=== PATIENT | female | born 1940 ===

== ENCOUNTER 2016-09-29 08:48 | Observation (INO) | payer OTHER ==
[2016-09-29 09:02] VITALS: BMI 28.7
[2016-09-29] MEDS ORDERED: Etomidate 20 mg/10ml Inj IV ONE (10:57)
[2016-09-29] MEDS ORDERED: Rocuronium 10 mg/ml (5 ml) ONE (10:57)
[2016-09-29] MEDS ORDERED: Succinylcholine 200 mg/10 ml Inj IV ONE (10:57)
[2016-09-29] MEDS ORDERED: Propofol 10 mg/ml Inj (20 ML) ONE (11:37)
[2016-09-29] MEDS ORDERED: Bupivacaine 0.5% Inj(30mL) ONE (11:57)
[2016-09-29] MEDS ORDERED: Lactated Ringer's 1,000 ML IV ONE ×2 (12:55)
[2016-09-29] MEDS ORDERED: Bupivacaine 0.5% Inj(30mL) IJ ONE (13:24)
[2016-09-29] MEDS ORDERED: Neostigmine Methylsulfate 3mg/3ml Syringe IV ONE (14:15)
[2016-09-29] MEDS ORDERED: Neostigmine Methylsulfate 2 MG/2 ML ML IV ONE (14:38)
[2016-09-29] MEDS ORDERED: Oxycodone/Acetaminophen 5/325 mg Tab PO PRN (14:39)
[2016-09-29] MEDS ORDERED: Lactated Ringer's 1,000 ML IV SCH (15:01)
[2016-09-29] MEDS ORDERED: HYDROmorphone 0.5 mg/0.5 ml ISec IVP PRN (15:01)
[2016-09-29] MEDS ORDERED: Naloxone 0.4 mg/ml Inj (Adult) IVP PRN (15:02)
[2016-09-29] MEDS ORDERED: DiphenhydrAMINE 50 mg/ml Inj IVP PRN (15:02)
--- NOTE | 2016-09-29 15:25 | OP ---
PROCEDURE DATE: 09/29/2016 PREOPERATIVE DIAGNOSES: Persistent left ovarian cyst, fibroid uterus. POSTOPERATIVE DIAGNOSES: Persistent left ovarian cyst, fibroid uterus. OPERATION PERFORMED: Robotic-assisted hysterectomy, cystoscopy. SURGEON: Brandi Lu MD LINOTYPE WORKER: Dr. Castillo. ANESTHESIA: General, administered by Dr. Kathleen. ESTIMATED BLOOD LOSS: 50 mL. URINE OUTPUT: Tabor catheter put out approximately 600 mL of clear urine. FLUIDS: The patient received approximately 1 liter of D5LR intraoperatively. OPERATIVE FINDINGS: Fibroid uterus, a 5 cm left ovarian cyst, normal left ovarian tube, absent right ovary and tube. COMPLICATIONS: There were no complications. The gynecological assistant was Dr. Castillo. She helped create exposure, extract the specimen and closed the patie nt. The procedure would not have been possible without her assistance. DESCRIPTION OF PROCEDURE: After informed consent was obtained, the patient was taken to the operating room where A timeout was performed. The patient was then given general anesthesia, prepped and drap ed in the usual sterile fashion. Attention was turned to the vagina where a speculum was inserted. The cervix was visualized and grasped with a single-tooth tenaculum. The cervix was gently dilated a nd a Cyphomaare uterine manipulator was inserted into the uterine cavity as a means to manipulate the uter us. Attention was then turned to the urethra where a Tabor catheter was inserted to monitor the tre ent's urinary output. Attention was then turned to the abdomen. Marcaine was infused in the umbilic us and an 8 mm vertical incision was made in the umbilical fold. A Veress needle was then introduced into the abdomen. Placement was confirmed with a fluid-filled syringe. The abdomen was then insuff lated to 15 mmHg. The Veress needle was removed and an 8 mm trocar was inserted into the abdominal c avity. Placement was confirmed with the laparoscope. Attention was then turned to approximately 3 c m superior to the right anterior iliac crest. The skin was infused with Marcaine, an 8 mm incision w as made and the robotic port was introduced under direct visualization. Approximately 10 cm right an d lateral to the umbilicus, the skin was infused with Marcaine and an 8 mm incision was made and the robotic port was introduced under direct visualization. Attention was then turned to the left side o f the abdomen. Approximately 3 cm superior to the left anterior iliac crest, Marcaine was infused, a n 8 mm incision was made and a robotic port was introduced under direct visualization. The abdomen w as surveyed with the findings noted above. The table was lowered. The patient was placed in steep T rendelenburg. The robot was brought along the patient's side and docked without complication. The i nstruments used for the procedure where a scissor PK dissector, ProGrasp and Isael SutureCut. The ins truments were inserted into the abdomen without complication. I then proceeded to break scrub and pr oceeded to the surgical console. Attention was then placed to the left round ligament. It was seria lly coagulated and then transected with the scissor. The peritoneum was undermined and cut with the scissor down to the level of VCare cup anteriorly. A similar procedure was performed posteriorly and the uterine artery was skeletonized. Attention was then turned to the left side where the round lig ament was serially coagulated and transected. The infundibulopelvic ligament was then skeletonized. The ureter was identified inferiorly. The infundibulopelvic ligament was then serially coagulated a nd transected with the scissors. The uterine artery was then skeletonized. The VCare cup was then i dentified anteriorly, posteriorly and laterally. The uterine artery on the left side was then serial ly coagulated and transected. A similar procedure was performed on the right side. The colpotomy wa s made anteriorly, the VCare cup was identified, and the cervix and uterus were amputated from the va linda using the scissors. The specimen was retrieved vaginally. The vaginal cuff was closed with 2-0 on a barbed suture. The abdomen was irrigated. The irrigant was removed with a suction device. He mostasis was noted. All instruments were then removed from the vagina. A cystoscopy was performed d ue to unable to visualize the left ureter due to variation of normal anatomy. Cystoscopy revealed pa tent ureters, dome of the bladder was noted to be intact. The instruments were then removed from the vagina. All sponge, lap, needle, and instrument counts were correct x 2. We then proceeded to the abdomen. The skin was closed with 3-0 Biosyn and Dermabond. All sponge, lap, needle, and instrument counts were correct x 2 and the patient was taken to recovery room in awake and stable condition. Brandi Lu MD cc: [phone] TT: 09/29/2016 15:24:39 [facility] # [id number] mn
[2016-09-29] MEDS: Insulin Regular 100 units/ml SC SCH (22:23)
[2016-09-29] MEDS: Lactated Ringer's 1,000 ML IV SCH (22:40)
[2016-09-30] MEDS: Insulin Regular 100 units/ml SC SCH ×3 (06:35→17:34)
[2016-09-30 07:31] VITALS: O2SAT 95
[2016-09-30 07:42] LABS: HEMATOCRIT 32.4 % (34.0-47.0); MEAN CELL VOLUME 91.1 fl (81.0-99.0); MEAN CORPUSCULAR HEMOGLOBIN 30.8 pg (27.0-31.0); MEAN CORPUSCULAR HGB CONC 33.8 g/dL (33.0-37.0); RED CELL DISTRIBUTION WIDTH 14.1 % (11.5-14.5)
[2016-09-30] MEDS ORDERED: ATENOLOL 100 MG TAB PO SCH (09:00)
[2016-09-30] MEDS ORDERED: Levothyroxine 75 MCG TAB PO SCH (09:00)
[2016-09-30] MEDS: Lactated Ringer's 1,000 ML IV SCH (09:02)
--- NOTE | 2016-09-30 12:04 | CP.SDSHP ---
Same Day Surgery [facility] - Allergies Allergies: Allergies No Known Allergies Allergy (Verified 09/15/16 10:14) - Physical Exam Vital Signs: Vital Signs 09/30/16 09/30/16 09/30/16 05:00 07:30 08:56 Temperature 99.5 F 98.7 F Pulse Rate 74 74 74 Respiratory 19 18 Rate Blood Pressure 107/51 L 108/62 108/62 O2 Sat by Pulse 96 95 Oximetry Short Stay Discharge - Short Stay Discharge Admitting Diagnosis/Reason for Visit: N83.20/ D25.9/ Referrals: Washington John MD [Primary Care Provider] - Progress Note/Discharge Note with Instructions: patient doing well no heavy lifting NPV prescription for motrin p[ercocet and colace provided f/u with Phyllis in 1-1 weeks
[2016-09-30 16:31] VITALS: BP 120/73; PULSE 58; RESP 20; TEMP 97
== END 2016-09-30 18:25 | disposition home or self-care (01) ==
LOC: H.OPSURG 08:48 → H.MEDSURG1 14:39
PROVIDERS: ADMIT Obstetrics & Gynecology Gynecology; ATTEND Obstetrics & Gynecology Gynecology
DX: D25.9 Leiomyoma of uterus, unspecified (principal); N83.202 Unspecified ovarian cyst, left side
CPT/HCPCS: 36415; 52000; 58571; 82948; 85027; 86850; 86900; 88305; G0378; J0330; J0690; J1170; J1885; J2001; J2274; J2405; J2704; J2710; J2765; J3010; J7120; S2900